=== PATIENT | female | born 2005 | race Caucasian/White ===

== ENCOUNTER 2023-10-20 22:17 | Emergency (ER) | payer OTHER ==
[2023-10-20 22:27] VITALS: TEMP 98.2
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
[2023-10-20 23:56] VITALS: BP 126/80; PULSE 97; RESP 18
--- NOTE | 2023-10-21 00:24 | XR ---
EXAM: XR Left Wrist Complete, 3 or More Views CLINICAL HISTORY: ITS.REASON XR Reason: wrist pain, foosh TECHNIQUE: Frontal, lateral and oblique views of the left wrist. COMPARISON: No relevant prior studies available. FINDINGS: Bones/joints: Nondisplaced, intra-articular fracture of the LEFT distal radius metaphysis. Nondisplaced fracture of the base of the ulnar styloid. No dislocation. Soft tissues: Unremarkable. No radiopaque foreign body. IMPRESSION: 1. Nondisplaced, intra-articular fracture of the LEFT distal radius metaphysis. 2. Nondisplaced fracture of the base of the ulnar styloid.
== END 2023-10-21 00:58 | disposition home or self-care (01) ==
LOC: EC 22:17
DX: S52.572A Other intraarticular fracture of lower end of left radius, initial encounter for closed fracture (principal); S52.615A Nondisplaced fracture of left ulna styloid process, initial encounter for closed fracture; V89.2XXA Person injured in unspecified motor-vehicle accident, traffic, initial encounter; Y92.411 Interstate highway as the place of occurrence of the external cause
CPT/HCPCS: 99284